=== PATIENT | male | born 1960 | race Caucasian/White ===

== ENCOUNTER 2018-06-07 23:30 | Emergency (ER) | payer SELFPAY ==
[~2018-06-07] VITALS: Ht 180.3 cm; Wt 70.8 kg
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
[2018-06-08 01:52] VITALS: BP 111/70
[2018-06-08] MEDS ORDERED: DIPHTH,PERTUSS(ACELL),TET TOX 0.5 ML DISP.SYRIN. VAX IM ONE (02:00)
[2018-06-08] MEDS ORDERED: CEPH-264 PO (02:07)
[2018-06-08] MEDS ORDERED: HYDR-3135 PO (02:14)
== END 2018-06-08 02:23 | disposition home or self-care (01) ==
LOC: ER 23:30
DX: S02.40FA Zygomatic fracture, left side, initial encounter for closed fracture (principal); S02.40DA Maxillary fracture, left side, initial encounter for closed fracture; S02.2XXA Fracture of nasal bones, initial encounter for closed fracture; S02.82XA Fracture of other specified skull and facial bones, left side, initial encounter for closed fracture; F10.20 Alcohol dependence, uncomplicated; Y90.9 Presence of alcohol in blood, level not specified; V43.52XA Car driver injured in collision with other type car in traffic accident, initial encounter; Y93.89 Activity, other specified; Y92.89 Other specified places as the place of occurrence of the external cause; Y99.8 Other external cause status
CPT/HCPCS: 70450; 70486; 90471; 90715; 99284